=== PATIENT | male | born 1995 | race Caucasian/White ===

== ENCOUNTER 2023-03-28 20:35 | Emergency (ER) | payer OTHER, SELFPAY ==
[2023-03-28] VITALS (12 sets, daily range): BP systolic 116–133; BP diastolic 56–99; PULSE 69–109; RESP 16–22; TEMP 37.4–39.5; O2SAT 96–100; BMI 25.1
--- NOTE | 2023-03-28 20:55 | DI.RAD.S_ITS ---
PROCEDURE: XR CHEST 2V INDICATIONS: sepsis TECHNIQUE: 2 views of the chest were acquired. COMPARISON: None. FINDINGS: Surgical changes and devices: None. Lungs and pleura: Lungs are clear. No pleural effusions or pneumothorax. Mediastinum: Mediastinal contours are normal. Heart size is normal. Bones and chest wall: No suspicious bony abnormalities. Soft tissues appear unremarkable. IMPRESSION: No acute cardiopulmonary abnormality. Dictated by: Shyam Kuo M.D. on 03/28/2023 at 23:12 Approved by: Shyam Kuo M.D. on 03/28/2023 at 23:14
[2023-03-28] MEDS: KETOROLAC 30 MG/ML VIAL 15 MG IV (21:18)
[2023-03-28] MEDS: LACTATED RINGERS 2,190 ML 730 ML IV (21:20)
[2023-03-28 21:26] LABS: Alanine Aminotransferase 29 IU/L (<50); Albumin 4.6 g/dL (3.5-5.0); Albumin Globulin Ratio 1.3 (1.0-2.8); Alkaline Phosphatase 63 U/L (38-126); Aspartate Aminotransferase 28 IU/L (17-59); BUN Creatinine Ratio 14.2 (6-22); Bilirubin Total 1.7 mg/dL (0.2-1.3); Blood Urea Nitrogen 16 mg/dL (9-20); Calcium 9.5 mg/dL (8.4-10.2); Carbon Dioxide 25 mmol/L (22-32); Chloride 98 mmol/L (98-107); Creatine Kinase 98 U/L (55-170); Estimated Glomerular Filt Rate > 60 mL/min (>60); Globulin 3.5 g/dL (1.7-4.1); Glucose 106 mg/dL (70-100); HEMOLYSIS 18 (0-50); Potassium 3.5 mmol/L (3.4-5.1); Sodium 135 mmol/L (137-145); Total Protein 8.1 g/dL (6.3-8.2)
[2023-03-28 21:36] LABS: Hematocrit 44.3 % (41-53); Hemoglobin 15.8 g/dL (13.5-17.5); Mean Corpuscular HGB Conc 35.7 % (30-36); Mean Corpuscular Volume 86.8 fL (80-100); Platelet Count 187 X10^3/uL (150-400); Red Blood Cell Count 5.11 X10^6/uL (4.5-5.9); Red Cell Distribution Width 12.9 % (11.6-14.8); White Blood Cell Count 9.7 X10^3/uL (4.5-11.0)
[2023-03-28 21:37] LABS: Lactate (Lactic Acid) 1.1 mmol/L (0.7-2.1)
[2023-03-28 21:38] LABS: Troponin I < 0.012 ng/mL (0.01-0.034)
[2023-03-28 21:43] LABS: Procalcitonin 0.38 ng/mL (<0.5)
[2023-03-28 21:46] LABS: Add Manual Diff / Slide Review YES
[2023-03-28 21:56] LABS: Neutrophils Absolute Manual 9118 /uL (3000-5900); RBC Morphology Normal Morphology; Total Cells Counted 100
[2023-03-28 22:06] LABS: Adenovirus Not Detected (Not Detect); B. parapertussis Not Detected (Not Detecte); Bordetella pertussis Not Detected (Not Detect); Chlamydophila pneumoniae Not Detected (Not Detect); Coronavirus 229E Not Detected (Not Detect); Coronavirus HKU1 Not Detected (Not Detect); Coronavirus NL 63 Not Detected (Not Detect); Coronavirus OC43 Not Detected (Not Detect); Human Metapneumovirus Not Detected (Not Detect); Human Rhinovirus/Enterovirus Not Detected (Not Detect); Influenza A Not Detected (Not Detect); Influenza B Not Detected (Not Detect); Mycoplasma pneumoniae Not Detected (Not Detect); Parainfluenza Virus 1 Not Detected (Not Detect); Parainfluenza Virus 2 Not Detected (Not Detect); Parainfluenza Virus 3 Not Detected (Not Detect); Parainfluenza Virus 4 Not Detected (Not Detect); Respiratory Syncytial Virus Not Detected (Not Detect); SARS- CoV-2 Not Detected (Not Detecte)
[2023-03-28 22:53] LABS: Appearance Urine UA CLEAR; Bilirubin Urine UA 1+ (NEGATIVE); Color Urine UA YELLOW; Glucose Urine UA NEGATIVE (Negative); Ketones Urine UA 1+ (NEGATIVE); Leukocyte Esterase Urine UA NEGATIVE (NEGATIVE); Nitrite Urine UA NEGATIVE (Negative); Occult Blood Urine UA NEGATIVE (Negative); Protein Urine UA NEGATIVE (Negative); Specific Gravity Urine UA 1.025 (1.000-1.035); pH Urine UA 5.5 (4.5-8.0)
[2023-03-28 23:12] LABS: Ictotest Urine Negative (Negative)
[2023-03-28 23:21] LABS: Bacteria Urine None Seen; Culture Indicated Urine Cult Not Indicated; RBC Urine None Seen (0-5/HPF); Squamous Epithelial Cell Urine None Seen (0-5/HPF); WBC Urine 0-1/HPF (0-5/HPF)
--- NOTE | 2023-03-28 23:39 | ED_ITS ---
HPI - Fever General Chief Complaint: Fever Stated Complaint: fever, confusion Time Seen by Provider: 03/28/23 20:42 Source: patient Mode of arrival: Ambulatory History of Present Illness HPI Narrative: 27-year-old male nonsmoker without any chronic medical history presents with his significant other and a chief complaint of some mild stomach cramps last night as well as fever and nausea. He feels achy and has had a fever as high as 104 earlier today. He denies any headache or neck pain. No runny nose, sore throat or cough. No ear pain, no chest pain shortness of breath or cough. No ongoing abdominal pain, no urinary complaints. He states that when his fever was significantly elevated he just felt weird, off and confused. he denies any recent travel or exposure to obviously ill persons Related Data Allergies Allergy/AdvReac Type Severity Reaction Status Date / Time No Known Drug Allergies Allergy Verified 03/28/23 20:42 Review of Systems Review of Systems Narrative: GENERAL: see HPI HEENT: see HPI RESPIRATORY: see HPI CARDIOVASCULAR: Denies chest pain, palpitations, orthopnea, edema, GASTROINTESTINAL: see HPI : see HPI MUSCULOSKELETAL: denies weakness, joint pain, or bony pain SKIN: Denies rash, skin lesions, or other NEUROLOGIC: Denies weakness, headache, numbness, change in speech, seizures, incoordination. does endorse confusion when fever is elevated PSYCHIATRIC: No concerning psychosocial issues. 12 point review of systems is negative except for those stated above Patient History Social History Smoking Status: Never smoker Smoking Status: Never smoker Substance Use Type: does not use Exam Narrative Exam Narrative: GENERAL: [27] year old patient appears stated age. Well-developed patient, in mild distress. GCS 15 HEAD: Atraumatic. Normocephalic. EYES: Pupils equal round and reactive. Extraocular motions intact. No scleral icterus. No injection or drainage. ENT: Nose without bleeding, purulent drainage. Throat without erythema, tonsillar hypertrophy or exudate. Airway patent. NECK: Trachea midline. Non tender, no meningeal sign CARDIOVASCULAR: Slightly tachycardic but regular rhythm without murmurs, gallops, or rubs. RESPIRATORY: Clear to auscultation. Breath sounds equal bilaterally. No wheezes, rales, or rhonchi. GASTROINTESTINAL: Abdomen soft, non-tender, nondistended. EXTREMITIES: No edema or joint tenderness. BACK: Nontender without deformity or crepitance. No flank tenderness. NEURO: AOx3. SKIN: No rash or erythema of visible areas Initial Vital Signs Initial Vital Signs: Vital Signs Temperature 103.1 F H 03/28/23 20:42 Pulse Rate 109 H 03/28/23 20:42 Respiratory Rate 18 03/28/23 20:42 Blood Pressure 123/72 03/28/23 20:42 Pulse Oximetry 98 03/28/23 20:42 Oxygen Delivery Method Room Air 03/28/23 20:42 Course Orders Ordered: ED Orders 03/28/23 20:55 XR chest 2V Stat 03/28/23 21:00 Blood Culture Stat Complete Blood Count AUTO DIFF Stat Comprehensive Metabolic Panel Stat Lactate (Lactic Acid) Stat Procalcitonin Stat Respiratory Panel (Film Array) Stat Troponin & CK Cardiac Panel Stat 03/28/23 22:36 Ictotest Urine Stat Urinalysis and Microscopic Stat Lactated Ringer's (Lactated Ringers) 2,190 mls @ 730 mls/hr 30 ml/kg infuse over 3 hr (2190 ml) IV NOW ONE Stop: 03/28/23 23:54 Last Infusion: 03/28/23 23:37 Dose: Infused Documented By: Admin: 03/28/23 21:20 Dose: 730 mls/hr Documented By: ISSA Discontinued Medications Acetaminophen (Acetaminophen 325 Mg Tablet) 975 mg PO NOW ONE Stop: 03/28/23 23:38 Ketorolac Tromethamine (Ketorolac 30 Mg/Ml Vial) 15 mg IV NOW ONE Stop: 03/28/23 20:56 Last Admin: 03/28/23 21:18 Dose: 15 mg Documented By: ISSA Vital Signs Vital signs: Vital Signs - 8 hr 03/28/23 20:42 03/28/23 20:54 03/28/23 20:54 Temperature 103.1 F H Pulse Rate 109 H 106 H Respiratory Rate 18 Blood Pressure 123/72 133/75 Pulse Oximetry 98 96 Oxygen Delivery Method Room Air 03/28/23 21:00 03/28/23 21:15 03/28/23 21:15 Temperature Pulse Rate 98 H 95 H Respiratory Rate Blood Pressure 129/66 Pulse Oximetry 98 100 Oxygen Delivery Method Room Air Room Air 03/28/23 21:18 03/28/23 21:18 03/28/23 21:30 Temperature Pulse Rate 85 Respiratory Rate 22 Blood Pressure 128/68 118/57 L Pulse Oximetry 99 Oxygen Delivery Method Room Air 03/28/23 21:30 03/28/23 22:00 03/28/23 22:00 Temperature 99.4 F Pulse Rate 83 79 Respiratory Rate 16 20 Blood Pressure 116/57 L Pulse Oximetry 99 96 Oxygen Delivery Method Room Air Room Air 03/28/23 22:35 03/28/23 22:36 03/28/23 22:36 Temperature Pulse Rate 78 78 Respiratory Rate 20 Blood Pressure 123/99 H Pulse Oximetry 97 96 Oxygen Delivery Method 03/28/23 23:00 03/28/23 23:00 03/28/23 23:30 Temperature Pulse Rate 69 Respiratory Rate 20 Blood Pressure 122/56 L 125/62 Pulse Oximetry 98 Oxygen Delivery Method 03/28/23 23:30 03/28/23 23:37 Temperature 101.9 F H Pulse Rate 80 Respiratory Rate 20 Blood Pressure Pulse Oximetry 99 Oxygen Delivery Method Room Air MDM - Fever Lab Data 03/28/23 21:00 03/28/23 21:00 Labs: Lab Results 03/28/23 03/28/23 Range/Units 21:00 22:36 WBC 9.7 (4.5-11.0) X10^3/uL RBC 5.11 (4.5-5.9) X10^6/uL Hgb 15.8 (13.5-17.5) g/dL Hct 44.3 (41-53) % MCV 86.8 (80-100) fL MCH 31.0 (26-34) PG MCHC 35.7 (30-36) % RDW 12.9 (11.6-14.8) % Plt Count 187 (150-400) X10^3/uL Neut % (Auto) Not Reportable Lymph % (Auto) Not Reportable Glenn % (Auto) Not Reportable Eos % (Auto) Not Reportable Baso % (Auto) Not Reportable Lymph # (Auto) Not Reportable Glenn # (Auto) Not Reportable Baso # (Auto) Not Reportable Total Counted 100 Seg Neutrophils % 78.0 H (38-70) % Band Neutrophils % 16.0 H (3-7) % Lymphocytes % (Manual) 4.0 L (25-45) % Monocytes % (Manual) 2.0 (2-11) % Neutrophils # (Manual) 9118 H (7137-5610) /uL RBC Morphology Normal morphology Sodium 135 L (137-145) mmol/L Potassium 3.5 (3.4-5.1) mmol/L Chloride 98 (98-107) mmol/L Carbon Dioxide 25 (22-32) mmol/L BUN 16 (9-20) mg/dL Creatinine 1.13 (0.66-1.25) mg/dL Estimated GFR > 60 (>60) mL/min BUN/Creatinine Ratio 14.2 (6-22) Glucose 106 H (70-100) mg/dL Lactate 1.1 (0.7-2.1) mmol/L Calcium 9.5 (8.4-10.2) mg/dL Total Bilirubin 1.7 H (0.2-1.3) mg/dL AST 28 (17-59) IU/L ALT 29 (<50) IU/L Alkaline Phosphatase 63 (38-126) U/L Total Creatine Kinase 98 (55-170) U/L Troponin I < 0.012 (0.01-0.034) ng/mL Total Protein 8.1 (6.3-8.2) g/dL Albumin 4.6 (3.5-5.0) g/dL Globulin 3.5 (1.7-4.1) g/dL Albumin/Globulin Ratio 1.3 (1.0-2.8) Procalcitonin 0.38 (<0.5) ng/mL Urine Color Yellow Urine Appearance Clear Urine pH 5.5 (4.5-8.0) Ur Specific Festus 1.025 (1.000-1.035) Urine Protein Negative (Negative) Urine Glucose (UA) Negative (Negative) g/dL Urine Ketones 1+ H (NEGATIVE) Urine Occult Blood Negative (Negative) Urine Nitrate Negative (Negative) Urine Bilirubin 1+ H (NEGATIVE) Ur Bilirubin Confirm Negative (Negative) Urine Urobilinogen 1.0 (0.2) E.U./dL Ur Leukocyte Esterase Negative (NEGATIVE) Urine RBC None seen (0-5/HPF) Urine WBC 0-1/hpf (0-5/HPF) Ur Squamous Epith Cells None seen (0-5/HPF) Urine Bacteria None seen (None) Ur Culture Indicated? Cult not indicated Chlamy pneumoniae PCR Not detected (Not Detect) Adenovirus (PCR) Not detected (Not Detect) B.parapertussis DNA PCR Not detected (Not Detecte) Coronavirus OC43 (PCR) Not detected (Not Detect) Coronavirus HKU1 (PCR) Not detected (Not Detect) Coronavirus 229E (PCR) Not detected (Not Detect) SARS-CoV-2 (PCR) Not detected (Not Detecte) Coronavirus NL63 (PCR) Not detected (Not Detect) Human Metapneumovir PCR Not detected (Not Detect) Influenza Type A (PCR) Not detected (Not Detect) Influenza Type B (PCR) Not detected (Not Detect) M. pneumoniae (PCR) Not detected (Not Detect) Parainfluenza 1 (PCR) Not detected (Not Detect) Parainfluenza 2 (PCR) Not detected (Not Detect) Parainfluenza 3 (PCR) Not detected (Not Detect) Parainfluenza 4 (PCR) Not detected (Not Detect) RSV (PCR) Not detected (Not Detect) Entero/Rhino (PCR) Not detected (Not Detect) Urine Dip Bedside Urine Glucose Negative Bedside Urine Bilirubin - Negative Bedside Urine Ketone + 15 Urine Specific Festus 1.02 Bedside Urine Occult Blood - Negative Bedside Urine pH 6 Bedside Urine Protein - Negative Bedside Urine Urobilinogen - Negative Bedside Urine Nitrite - Negative Bedside Urine Leukocytes - Negative Esterase MDM Narrative Medical decision making narrative: CC: 27-year-old male with high fever Complicating co-morbidities: no significant comorbidities Data collected from: Patient Medical records reviewed: Prior notes reviewed in our EMR Differential considered, but not limited to: meningitis versus encephalitis versus COVID versus flu versus pneumonia versus intra-abdominal infection versus other Exam documented above, pertinent findings include: alert and oriented, slightly tachycardic on arrival, lungs clear, no respiratory distress, abdomen soft and nontender Lab Test results independently reviewed as above. Pertinent findings: no leukocytosis or left shift, no signs of anemia, sodium 135, potassium 3.5, CO2 25, creatinine 1.1, glucose 106, lactate 1.1, bilirubin 1.7, , LFTs within normal limit, procalcitonin less than cutoff, full respiratory panel negative Independently reviewed EKG as above Imaging studies independently reviewed: chest x-ray without acute process Treatments: lactated Ringer's at 30 milliliters/kilogram, ketorolac and Tylenol Re-evaluations: profound symptomatic improvement, heart rate down to the 60s, patient alert and oriented, feeling significant better Discussion: patient with less than 24 hours of fever as high as 104 but very little in the way of specific symptoms. Multiple diagnoses considered as noted above. Patient has profound improvement with above-stated therapies. No meningeal signs, no altered mental status and normal labs. We did discuss the possibility of meningitis or encephalitis but sure the opinion that it is extremely unlikely that there is a clinically significant finding to be obtained with a lumbar puncture. We sure the opinion that it is unlikely to change the plan and we will hold off performing this procedure for now. Additionally we discussed the utility of advanced imaging of the abdomen but patient is no longer having abdominal pain, has not had diarrhea since he has been here and has stable labs. We discussed the high likelihood of a viral etiology given the nonspecific symptoms and the potential of it just being too early to find a positive. We had extensive discussion regarding return precautions including worsening symptoms, altered mental status, neck pain, shortness of breath, recurrence of abdominal pain or other symptoms. Disposition: see below, along with detailed discharge instructions that have been reviewed with patient as well as indications for ED re-evaluation and additional outpatient follow up Discharge Plan Departure Patient Disposition: Home Clinical Impression: Fever of unknown origin Instructions: DI for Fever (Symptom) -- Adult Activity Restrictions/Additional Instructions: *You have been diagnosed with [ fever of unknown origin. As we discussed your history and physical exam, labs, imaging and response to therapies is very reassuring. At this point there is not a specific answer but as we discussed is certainly reasonable to allow you to go home and we will learn much over the next 12-24 hours. ] *What to do: *Please continue to take your regular medications as directed. [ ] New medication prescriptions sent to your pharmacy: [ ] [ ] New medication written as a paper prescription [ ] No new medications given *Please follow up with your primary care provider in 2-3 days, call for an appointment. Let them know you were seen in the Emergency Department and that we ask that you be seen in follow up. We will electronically transmit a record of today's note if your PCP is in our system *If you do not have a primary care provider please contact the [facility] Resource line at [phone]. They will ask some questions about your medical history and help get you set up with a doctor in the community. *Return to Emergency Department if you should have any new, worsening or concerning symptoms, such as [fever greater than 101 F, shaking chills, worsening pain, persistent vomiting or other bothersome symptoms] Referrals: ProviderMichaelle [Primary Care Provider] - Stand Alone Forms: Patient Portal/API, Work Release Note
[2023-03-28] MEDS: ACETAMINOPHEN 325 MG TABLET 975 MG PO (23:40)
== END 2023-03-28 23:42 | disposition home or self-care (01) ==
PROVIDERS: Emergency Provider Emergency Medicine
DX: R50.9 Fever, unspecified (principal); Z20.822 Contact with and (suspected) exposure to COVID-19
CPT/HCPCS: 36415; 71046; 80053; 81001; 81003; 82550; 83605; 84145; 84484; 85007; 85025; 87040; 87633; 96361; 96374; 99284; J1885

== ENCOUNTER 2023-04-02 11:40 | Emergency (ER) | payer OTHER, SELFPAY ==
[2023-04-02 11:44] VITALS: BP 139/75; PULSE 84; RESP 16; TEMP 36.9; O2SAT 97; BMI 24.4
[2023-04-02 12:19] LABS: Add Manual Diff / Slide Review NO; Basophils Absolute Auto 0 /uL (0-100); Basophils Percent Auto 0.6 % (0-2); Eosinophils Absolute Auto 0 /uL (0-450); Eosinophils Percent Auto 0.7 % (2-4); Hematocrit 41.5 % (41-53); Hemoglobin 14.8 g/dL (13.5-17.5); Lymphocytes Absolute Auto 1300 /uL (1100-4500); Lymphocytes Percent Auto 28.1 % (25-40); Mean Corpuscular HGB Conc 35.7 % (30-36); Mean Corpuscular Hemoglobin 30.5 PG (26-34); Mean Corpuscular Volume 85.5 fL (80-100); Monocytes Absolute Auto 700 /uL (0-900); Neutrophils Absolute Auto 2400 /uL (1500-7000); Neutrophils Percent Auto 54.6 % (50-75); Platelet Count 240 X10^3/uL (150-400); Red Blood Cell Count 4.86 X10^6/uL (4.5-5.9); Red Cell Distribution Width 13.1 % (11.6-14.8); White Blood Cell Count 4.5 X10^3/uL (4.5-11.0)
[2023-04-02 12:35] LABS: Bacteria Urine None Seen; Culture Indicated Urine Cult Not Indicated; RBC Urine None Seen (0-5/HPF); Squamous Epithelial Cell Urine None Seen (0-5/HPF); WBC Urine None Seen (0-5/HPF)
[2023-04-02 12:36] LABS: Alanine Aminotransferase 49 IU/L (<50); Albumin 4.2 g/dL (3.5-5.0); Albumin Globulin Ratio 1.4 (1.0-2.8); Alkaline Phosphatase 55 U/L (38-126); Aspartate Aminotransferase 43 IU/L (17-59); Bilirubin Total 1.2 mg/dL (0.2-1.3); Blood Urea Nitrogen 12 mg/dL (9-20); Calcium 9.5 mg/dL (8.4-10.2); Carbon Dioxide 26 mmol/L (22-32); Chloride 105 mmol/L (98-107); Estimated Glomerular Filt Rate > 60 mL/min (>60); Globulin 3.1 g/dL (1.7-4.1); Glucose 97 mg/dL (70-100); HEMOLYSIS 19 (0-50); Lipase 67 U/L (23-300); Potassium 3.7 mmol/L (3.4-5.1); Sodium 139 mmol/L (137-145); Total Protein 7.3 g/dL (6.3-8.2)
--- NOTE | 2023-04-02 13:14 | ED.ABDPAIN ---
HPI - Abdominal Pain <Rickey Waters PA-C - Last Filed: 04/02/23 14:03> General Chief Complaint: Abdominal Pain Stated Complaint: blood in stool/stomach ache/here T-4 worsening Time Seen by Provider: 04/02/23 11:57 Source: patient Mode of arrival: Ambulatory History of Present Illness HPI narrative: 27-year-old male with no reported past medical history presents to the ED with 6 days of watery diarrhea and abdominal cramping. Patient was seen in the ED on 03/28/2023 for a fever and abdominal cramping. Patient's symptoms improved with ketorolac, Tylenol, IV fluids, patient was discharged home. Patient returns today to the ED since his diarrhea has continued to be watery with 10-12 episodes per day. Patient also endorses significant abdominal cramping. Patient denies fevers since 03/28/2023. Patient denies chest pain, shortness of breath, nausea, vomiting, dysuria, lightheadedness, dizziness, syncope. Patient denies URI symptoms including rhinorrhea, sore throat, cough. Patient is able to tolerate p.o. well. Patient states that he does not have a good appetite but is able to keep down fluids. Patient denies any recent travel. Patient endorses eating at [id number] on the day prior to his initial symptom onset. Related Data Previous Rx's Medication Instructions Recorded azithromycin 500 mg tablet 500 mg PO DAILY 3 days #3 tabs 04/02/23 hyoscyamine sulfate 0.125 mg 0.25 mg (2 x 0.125 mg) PO TID-QID 04/02/23 tablet (Levsin) PRN dyspepsia 5 days #20 tabs Allergies Allergy/AdvReac Type Severity Reaction Status Date / Time No Known Drug Allergies Allergy Verified 04/02/23 11:43 Review of Systems <Rickey Waters PA-C - Last Filed: 04/02/23 14:03> Constitutional Constitutional: Denies chills, Denies fatigue, Denies fever(s), Denies frequent falls, Denies lethargy and Denies weakness Eyes Eyes: Denies change in vision, Denies eye discharge, Denies irritation and Denies loss of vision ENT Ears, Nose, Mouth, and Throat: Denies change in voice, Denies dizziness, Denies neck pain, Denies sore throat and Denies throat swelling Cardiovascular Cardiovascular: Denies chest pain, Denies irregular heart rhythm, Denies lightheadedness, Denies palpitations, Denies dyspnea, Denies dyspnea on exertion and Denies orthopnea Respiratory Respiratory: Denies cough, Denies dyspnea, Denies dyspnea on exertion and Denies wheezing Gastrointestinal Gastrointestinal: Denies abdominal pain, Reports hematochezia, Denies change in bowel habits, Reports cramping, Reports diarrhea, Denies nausea and Denies vomiting Musculoskeletal Musculoskeletal: Denies neck pain and Denies numbness Integumentary/Breasts Skin/Breast: Denies pruritus, Denies erythema, Denies rash and Denies wounds Neurologic Neurologic: Denies behavioral changes, Denies confusion, Denies dizziness, Denies frequent falls, Denies loss of vision, Denies numbness and Denies weakness Psychiatric Psychiatric: Denies anxiety, Denies behavioral changes, Denies confusion, Denies depression, Denies homicidal ideation and Denies suicidal ideation Endocrine Endocrine: Denies fatigue, Denies flushing and Denies palpitations Hematologic/Lymphatic Hematologic/Lymphatic: Denies easy bruising Allergic/Immunologic Allergic/Immunologic: Denies urticaria, Denies throat swelling and Denies wheezing Patient History <Rickey Waters PA-C - Last Filed: 04/02/23 14:03> Social History Smoking Status: Never smoker Smoking Status: Never smoker Substance Use Type: does not use Exam <Rickey Waters PA-C - Last Filed: 04/02/23 14:03> Narrative Exam Narrative: Const General:?cooperative, healthy appearing and comfortable [facility] Head:?normal to inspection Ears:?hearing grossly normal bilaterally Nose:?external nose normal Face and sinus:?normal facial exam and sinuses nontender Mouth:?oral mucosae normal Throat:?posterior oropharynx normal Eyes General:?appearance normal, both eyes and all related structures Neck Neck:?normal visual inspection and no lymphadenopathy noted Resp Effort & Inspection:?normal respiratory effort Auscultation:?clear to auscultation bilaterally Cardio Rate:?regular rate Rhythm:?regular rhythm GI Abdomen is soft, nondistended, nontender to palpation Neuro General:?patient alert, patient awake and patient oriented x3 Initial Vital Signs Initial Vital Signs: Vital Signs Temperature 98.4 F 10/24/23 11:44 Pulse Rate 84 04/02/23 11:44 Respiratory Rate 16 04/02/23 11:44 Blood Pressure 139/75 04/02/23 11:44 Pulse Oximetry 97 04/02/23 11:44 Oxygen Delivery Method Room Air 04/02/23 11:44 <Farhat Silva MD - Last Filed: 04/02/23 17:59> Initial Vital Signs Initial Vital Signs: Vital Signs Temperature 98.4 F 04/02/23 11:44 Pulse Rate 84 04/02/23 11:44 Respiratory Rate 16 04/02/23 11:44 Blood Pressure 139/75 04/02/23 11:44 Pulse Oximetry 97 04/02/23 11:44 Oxygen Delivery Method Room Air 04/02/23 11:44 Course <Rickey Waters PA-C - Last Filed: 04/02/23 14:03> Orders Ordered: ED Orders 04/02/23 12:07 GI Panel (Film Array) Stat 04/02/23 12:09 Complete Blood Count AUTO DIFF Stat Comprehensive Metabolic Panel Stat Lipase Stat Urine Microscopic Stat Vital Signs Vital signs: Vital Signs - 8 hr 04/02/23 11:44 04/02/23 14:05 Temperature 98.4 F 98.1 F Pulse Rate 84 68 Respiratory Rate 16 14 Blood Pressure 139/75 128/78 Pulse Oximetry 97 99 Oxygen Delivery Method Room Air Room Air <Farhat Silva MD - Last Filed: 04/02/23 17:59> Orders Ordered: ED Orders 04/02/23 12:07 GI Panel (Film Array) Stat 04/02/23 12:09 Complete Blood Count AUTO DIFF Stat Comprehensive Metabolic Panel Stat Lipase Stat Urine Microscopic Stat Vital Signs Vital signs: Vital Signs - 8 hr 04/02/23 11:44 04/02/23 14:05 Temperature 98.4 F 98.1 F Pulse Rate 84 68 Respiratory Rate 16 14 Blood Pressure 139/75 128/78 Pulse Oximetry 97 99 Oxygen Delivery Method Room Air Room Air MDM - Abdominal Pain <Rickey Waters PA-C - Last Filed: 04/02/23 14:03> Lab Data 04/02/23 12:09 04/02/23 12:09 Labs: Lab Results 04/02/23 04/02/23 Range/Units 12:07 12:09 WBC 4.5 (4.5-11.0) X10^3/uL RBC 4.86 (4.5-5.9) X10^6/uL Hgb 14.8 (13.5-17.5) g/dL Hct 41.5 (41-53) % MCV 85.5 (80-100) fL MCH 30.5 (26-34) PG MCHC 35.7 (30-36) % RDW 13.1 (11.6-14.8) % Plt Count 240 (150-400) X10^3/uL Neut % (Auto) 54.6 (50-75) % Lymph % (Auto) 28.1 (25-40) % Gordon % (Auto) 16.0 H (3-14) % Eos % (Auto) 0.7 L (2-4) % Baso % (Auto) 0.6 (0-2) % Neut # (Auto) 2400 (2822-8653) /uL Lymph # (Auto) 1300 (9691-5703) /uL Gordon # (Auto) 700 (0-900) /uL Eos # (Auto) 0 (0-450) /uL Baso # (Auto) 0 (0-100) /uL Sodium 139 (137-145) mmol/L Potassium 3.7 (3.4-5.1) mmol/L Chloride 105 (98-107) mmol/L Carbon Dioxide 26 (22-32) mmol/L BUN 12 (9-20) mg/dL Creatinine 0.80 (0.66-1.25) mg/dL Estimated GFR > 60 (>60) mL/min BUN/Creatinine Ratio 15.0 (6-22) Glucose 97 (70-100) mg/dL Calcium 9.5 (8.4-10.2) mg/dL Total Bilirubin 1.2 (0.2-1.3) mg/dL AST 43 (17-59) IU/L ALT 49 (<50) IU/L Alkaline Phosphatase 55 (38-126) U/L Total Protein 7.3 (6.3-8.2) g/dL Albumin 4.2 (3.5-5.0) g/dL Globulin 3.1 (1.7-4.1) g/dL Albumin/Globulin Ratio 1.4 (1.0-2.8) Lipase 67 (23-300) U/L Urine RBC None seen (0-5/HPF) Urine WBC None seen (0-5/HPF) Ur Squamous Epith Cells None seen (0-5/HPF) Urine Bacteria None seen (None) Ur Culture Indicated? Cult not indicated Stl C. cayetanensis PCR Not detected (Not Detect) Stool Rotavirus (PCR) Not detected (Not Detect) Stool Adenovirus (PCR) Not detected (Not Detect) Stool Astrovirus (PCR) Not detected (Not Detect) Stool Cryptosporidium PCR Not detected (Not Detect) Stl E.coli Shiga Tox PCR Not detected (Not Detect) St Sh/Enteroin Ecoli PCR Not detected (Not Detect) Stl Enterotoxigenic E PCR Not detected (Not Detect) Stool EPEC (PCR) Not detected (Not Detect) Stl E. histolytica PCR Not detected (Not Detect) Stool Giardia Lamblia PCR Not detected (Not Detect) Stool Sapovirus (PCR) Not detected (Not Detect) Stl P. shigelloides PCR Not detected (Not Detect) St Y.enterocolitica PCR Not detected (Not Detect) Stool Vibrio (PCR) Not detected (Not Detect) Stl Vibrio cholerae PCR Not detected (Not Detect) Stl Enteroaggr Ecoli PCR Not detected (Not Detect) Stl Norovirus GI/GII PCR Not detected (Not Detect) Campylobacter (PCR) Detected (Not Detect) C. difficile Tox (PCR) Not detected (Not Detect) Salmonella (PCR) Not detected (Not Detect) MDM Narrative Medical decision making narrative: 27-year-old male with no reported past medical history presents to the ED with 6 days of watery diarrhea and abdominal cramping. Concern for viral gastroenteritis versus bacterial gastroenteritis versus dehydration versus electrolyte derangement versus other. Will obtain labs, GI panel. Will reassess. Labs within normal limits. GI panel positive for Campylobacter jejuni. Prescribed antibiotics. Prescribe Levsin for abdominal cramping. Recommend good hydration. Recommend follow-up with PCP. ED return precautions were discussed with patient. Patient verbalized understanding. Medical records reviewed: Yes <Farhat Silva MD - Last Filed: 04/02/23 17:59> Lab Data Labs: Lab Results 04/02/23 04/02/23 Range/Units 12:07 12:09 WBC 4.5 (4.5-11.0) X10^3/uL RBC 4.86 (4.5-5.9) X10^6/uL Hgb 14.8 (13.5-17.5) g/dL Hct 41.5 (41-53) % MCV 85.5 (80-100) fL MCH 30.5 (26-34) PG MCHC 35.7 (30-36) % RDW 13.1 (11.6-14.8) % Plt Count 240 (150-400) X10^3/uL Neut % (Auto) 54.6 (50-75) % Lymph % (Auto) 28.1 (25-40) % Gordon % (Auto) 16.0 H (3-14) % Eos % (Auto) 0.7 L (2-4) % Baso % (Auto) 0.6 (0-2) % Neut # (Auto) 2400 (1258-9888) /uL Lymph # (Auto) 1300 (7057-3061) /uL Gordon # (Auto) 700 (0-900) /uL Eos # (Auto) 0 (0-450) /uL Baso # (Auto) 0 (0-100) /uL Sodium 139 (137-145) mmol/L Potassium 3.7 (3.4-5.1) mmol/L Chloride 105 (98-107) mmol/L Carbon Dioxide 26 (22-32) mmol/L BUN 12 (9-20) mg/dL Creatinine 0.80 (0.66-1.25) mg/dL Estimated GFR > 60 (>60) mL/min BUN/Creatinine Ratio 15.0 (6-22) Glucose 97 (70-100) mg/dL Calcium 9.5 (8.4-10.2) mg/dL Total Bilirubin 1.2 (0.2-1.3) mg/dL AST 43 (17-59) IU/L ALT 49 (<50) IU/L Alkaline Phosphatase 55 (38-126) U/L Total Protein 7.3 (6.3-8.2) g/dL Albumin 4.2 (3.5-5.0) g/dL Globulin 3.1 (1.7-4.1) g/dL Albumin/Globulin Ratio 1.4 (1.0-2.8) Lipase 67 (23-300) U/L Urine RBC None seen (0-5/HPF) Urine WBC None seen (0-5/HPF) Ur Squamous Epith Cells None seen (0-5/HPF) Urine Bacteria None seen (None) Ur Culture Indicated? Cult not indicated Stl C. cayetanensis PCR Not detected (Not Detect) Stool Rotavirus (PCR) Not detected (Not Detect) Stool Adenovirus (PCR) Not detected (Not Detect) Stool Astrovirus (PCR) Not detected (Not Detect) Stool Cryptosporidium PCR Not detected (Not Detect) Stl E.coli Shiga Tox PCR Not detected (Not Detect) St Sh/Enteroin Ecoli PCR Not detected (Not Detect) Stl Enterotoxigenic E PCR Not detected (Not Detect) Stool EPEC (PCR) Not detected (Not Detect) Stl E. histolytica PCR Not detected (Not Detect) Stool Giardia Lamblia PCR Not detected (Not Detect) Stool Sapovirus (PCR) Not detected (Not Detect) Stl P. shigelloides PCR Not detected (Not Detect) St Y.enterocolitica PCR Not detected (Not Detect) Stool Vibrio (PCR) Not detected (Not Detect) Stl Vibrio cholerae PCR Not detected (Not Detect) Stl Enteroaggr Ecoli PCR Not detected (Not Detect) Stl Norovirus GI/GII PCR Not detected (Not Detect) Campylobacter (PCR) Detected (Not Detect) C. difficile Tox (PCR) Not detected (Not Detect) Salmonella (PCR) Not detected (Not Detect) Discharge Plan Departure Patient Disposition: Home Clinical Impression: Gastroenteritis Instructions: DI for Bacterial Gastroenteritis -- Adult Activity Restrictions/Additional Instructions: You were evaluated in the ED today for abdominal cramping and diarrhea. Your stool sample did test positive for a bacteria namely Campylobacter jejuni, for which you are being prescribed antibiotics. Please complete the antibiotics as prescribed. You were also being prescribed a medication to treat the abdominal cramping. Please continue to stay well hydrated. Please follow-up with your PCP as soon as possible. Return to the ED if you have worsening symptoms, unable to keep down fluids and are feeling dehydrated. Prescriptions: New azithromycin 500 mg tablet 500 mg PO DAILY 3 Days Qty: 3 0RF hyoscyamine sulfate [Levsin] 0.125 mg tablet 0.25 mg PO TID-QID PRN (Reason: dyspepsia) 5 Days Qty: 20 0RF Referrals: ProviderMichaelle [Primary Care Provider] - Stand Alone Forms: Patient Portal/API ED Sign-out <Farhat Silva MD - Last Filed: 04/02/23 17:59> Cosign ED Attending Cosignature Attestation: I was immediately available in the department for consultation. ?This documentation has been reviewed and I agree with assessment and plan. Supervised by Farhat Silva MD
[2023-04-02 13:48] LABS: Adenovirus F 40/41 Not Detected (Not Detect); Astrovirus Not Detected (Not Detect); Clostridium difficile toxin AB Not Detected (Not Detect); Cryptosporidium Not Detected (Not Detect); Cyclospora cayetanensis Not Detected (Not Detect); Entamoeba histolytica Not Detected (Not Detect); Enteroaggregative E.coli Not Detected (Not Detect); Enteropathogenic E.coli Not Detected (Not Detect); Enterotoxigenic E.coli It/st Not Detected (Not Detect); Giardia lamblia Not Detected (Not Detect); Norovirus GI/GII Not Detected (Not Detect); Plesiomonsa shigelloides Not Detected (Not Detect); Rotavirus A Not Detected (Not Detect); Salmonella Not Detected (Not Detect); Sapovirus Not Detected (Not Detect); Shiga-like toxin-prod E.coli Not Detected (Not Detect); Shigella/Enteroinvasive E.coli Not Detected (Not Detect); Vibrio Not Detected (Not Detect); Vibrio cholerae Not Detected (Not Detect); Yersinia enterocolitica Not Detected (Not Detect)
[2023-04-02 13:55] LABS: Campylobacter Detected (Not Detect)
[2023-04-02 14:05] VITALS: BP 128/78; PULSE 68; RESP 14; TEMP 36.7; O2SAT 99
== END 2023-04-02 14:06 | disposition home or self-care (01) ==
PROVIDERS: Emergency Medicine; Emergency Provider Student in an Organized Health Care Education/Training Program
DX: A04.5 Campylobacter enteritis (principal); R10.9 Unspecified abdominal pain
CPT/HCPCS: 36415; 80053; 81015; 83690; 85025; 87507; 99283